=== PATIENT | male | born 1950 | race Caucasian/White ===

== ENCOUNTER → 2016-12-10 | Outpatient (CLI) | payer MEDICARE, BC ==
--- NOTE | 2016-12-10 07:36 | US ---
EXAMINATION TYPE: US duplex aorta DATE OF EXAM: 12/10/2016 COMPARISON: 2011 CLINICAL HISTORY: Z13.9 Screening for AAA. EXAM MEASUREMENTS: Abdominal Aorta: Proximal: 1.4 cm Mid: 1.4 cm Distal: 1.0 cm Bifurcation: 0.6 0.6 cm wnl IMPRESSION: No evidence for abdominal aortic aneurysm.
== END | disposition home or self-care (01) ==
LOC: RADUSWWP 06:48
PROVIDERS: ATTEND Family Medicine
DX: Z13.6 Encounter for screening for cardiovascular disorders (principal)
CPT/HCPCS: 93979